=== PATIENT | male | born 1980 | race Caucasian/White ===

== ENCOUNTER 2021-05-20 12:37 | Inpatient (IN) | payer OTHER ==
[~2021-05-20] VITALS: Ht 172.7 cm; Wt 90.7 kg
[2021-05-20 14:16] LABS: HEMOGLOBIN 12.5 gm/dl (14.0-17.5); RED BLOOD COUNT 4.04 M/UL (4.20-5.50); WHITE BLOOD COUNT 14.3 K/UL (4.5-11.0)
[2021-05-20 15:06] LABS: BUN/CREATININE RATIO 30 (0-10)
[2021-05-20] MEDS ORDERED: ABILIFY 2 MG TAB2 MG PO (18:20)
[2021-05-20] MEDS ORDERED: FLONASE ALLER15.8 ML (18:21)
[2021-05-20] MEDS ORDERED: MOBIC15 MG PO (18:24)
[2021-05-20] MEDS ORDERED: LIDOCAINE HCL1 EACH TP (18:24)
[2021-05-20] MEDS ORDERED: CLARITIN10 MG PO (18:24)
[2021-05-20] MEDS ORDERED: ZOLOFT100 MG PO (18:25)
[2021-05-20] MEDS ORDERED: VESICARE10 MG PO (18:25)
[2021-05-20] MEDS ORDERED: BUSPAR 10MG10 MG PO (18:26)
[2021-05-20] MEDS ORDERED: VISTARIL 50 MG50 MG PO (18:26)
[2021-05-20] MEDS ORDERED: DOCUSATE SODIU100 MG PO (18:27)
[2021-05-20] MEDS ORDERED: LIPITOR10 MG PO (18:27)
[2021-05-20] MEDS ORDERED: CLONIDINE HCL0.2 MG PO (18:28)
[2021-05-20] MEDS ORDERED: XALATAN OP SOL2.5 ML EYEBOTH (18:28)
[2021-05-20] MEDS ORDERED: SINGULAIR10 MG PO (18:29)
[2021-05-20] MEDS ORDERED: MELATONIN5 M2 PO (18:29)
[2021-05-20] MEDS ORDERED: MINIPRES CAP 2 M2 MG PO (18:30)
[2021-05-20] MEDS ORDERED: DESYREL 50 MG T50 MG PO (18:30)
[2021-05-20] MEDS ORDERED: SEROQUEL400 MG PO (18:30)
[2021-05-20] MEDS ORDERED: ACETAMINOPHEN325 MG PO (18:31)
[2021-05-20] MEDS ORDERED: BIOFREEZE89 ML TOP (18:32)
[2021-05-20] MEDS ORDERED: CYCLOBENZAPRINE10 MG PO (18:33)
[2021-05-20] MEDS ORDERED: BACTROBAN OINT22 GM TOP (18:34)
[2021-05-20] MEDS ORDERED: ZOFRAN 4 MG TAB4 MG PO (18:35)
[2021-05-20] MEDS ORDERED: PROAIR HFA8.5 GM INH (18:36)
[2021-05-20] MEDS ORDERED: DEXAMETHASONE 44 MG PO (18:37)
[2021-05-20] MEDS ORDERED: BLINK GEL TEARS10 ML EYEBOTH (18:38)
[2021-05-20] MEDS ORDERED: LIDOCAINE-PRILOC5 GM TOP (18:39)
--- NOTE | 2021-05-20 19:07 | NUR ---
CALLED AND GAVE ORLIN REPORT PT GOING TO [id number]
--- NOTE | 2021-05-20 19:32 | NUR ---
PT has bed on 5th floor so focused assessment done. I applied tele and pulse ox to PT, PT alert and oriented x3. Lung sounds clear Bilat. Skin has various abrasions and scabs in various stages of healing. Coccyx has redness that is blanchable. PT was drenched in urine, clothes wet and sheets wed, also mattress drenched in urine. PT cleaned and condom cath applied, and brief applied, PT placed in gown. Bed alarm on PT instructed to use call light if needs to get up
--- NOTE | 2021-05-20 22:09 | NUR ---
R/T ASSESSMENT UPON ARRIVAL TO FLOOR AT 2019 ON 05/20/21. REST OF SKIN ASSESSMENT FOLLOWS. TOP RIGHT FOOT/BELOW GREAT TOE: BLISTER AREA WELL GENERAL SCATTERED SCABBING AND REDNESS NOTED, CLOSED, FORESTRY PILOT. TOP LEFT FOOT/BELOW GREAT TOE: BLISTER AREA WELL GENERAL SCATTERED SCABBING, REDNESS, DRY, CLOSED, FORESTRY PILOT. LEFT HIP: SCATTERED SCABBING AND DRYNESS, CLOSED. IZABELA. FOREHEAD: TWO SMALL AREAS WHERE THE SKIN HAS BEEN BROKEN, NO DRAINAGE NOTED, RED SURROUNDING AREA, IZABELA.
--- NOTE | 2021-05-21 03:33 | NUR ---
PT WAS GIVEN FOUR SANDWICHES, 1500 ML OF ICE WATER, 6 POPSICLES, TWO CONTAINERS OF PUDDING, AND 2 SUPPLEMENTAL DRINKS THROUGHOUT THE SHIFT TO THIS POINT IN TIME.
[2021-05-21 05:52] LABS: HEMOGLOBIN 12.4 gm/dl (14.0-17.5); RED BLOOD COUNT 4.05 M/UL (4.20-5.50); WHITE BLOOD COUNT 12.3 K/UL (4.5-11.0)
[2021-05-21 07:03] LABS: BUN/CREATININE RATIO 29 (0-10)
[2021-05-22 05:48] LABS: WHITE BLOOD COUNT 13.9 K/UL (4.5-11.0)
[2021-05-22 05:49] LABS: HEMOGLOBIN 14.7 gm/dl (14.0-17.5); RED BLOOD COUNT 4.72 M/UL (4.20-5.50)
[2021-05-22 06:30] LABS: BUN/CREATININE RATIO 25 (0-10)
[2021-05-22 09:10] LABS: HBSAG SCREEN Negative (Negative); HEP A AB, IGM Negative (Negative); HEP B CORE AB, IGM Negative (Negative); HEP C VIRUS AB <0.1 (0.0-0.9)
[2021-05-23 06:50] LABS: HEMOGLOBIN 14.5 gm/dl (14.0-17.5); RED BLOOD COUNT 4.79 M/UL (4.20-5.50); WHITE BLOOD COUNT 13.8 K/UL (4.5-11.0)
[2021-05-23 07:01] LABS: BUN/CREATININE RATIO 25 (0-10)
[2021-05-24 04:29] LABS: HEMOGLOBIN 13.1 gm/dl (14.0-17.5); WHITE BLOOD COUNT 11.3 K/UL (4.5-11.0)
[2021-05-24 04:30] LABS: RED BLOOD COUNT 4.25 M/UL (4.20-5.50)
[2021-05-24 04:47] LABS: BUN/CREATININE RATIO 30 (0-10)
--- NOTE | 2021-05-24 11:31 | NUR ---
CALLED [facility] AT LONG TERM AND DISCUSSED PLAN OF CARE. ALSO SPOKE WITH MEDICAL REPRESENTITIVE OF FACILITY AND DISCUSSED MEDICATION CHANGES WITH HER. THEY BOTH VERBALIZED UNDERSTANDING OF PLAN OF CARE.
== END 2021-05-24 12:58 | disposition home or self-care (01) | DRG 564 ==
LOC: ER1 12:37 → CDU 16:01 → M/S 16:01 → 3 EAST 18:34 → M/S 20:09
PROVIDERS: Physician Assistant; ADMIT Internal Medicine
PROC: 8E0ZXY6 Isolation (ICD-10-PCS; principal; 2021-05-20)
DX: T79.6XXA Traumatic ischemia of muscle, initial encounter (principal); U07.1 COVID-19; W18.39XA Other fall on same level, initial encounter; R74.01 Elevation of levels of liver transaminase levels; F31.9 Bipolar disorder, unspecified; F41.9 Anxiety disorder, unspecified; L89.892 Pressure ulcer of other site, stage 2; F17.290 Nicotine dependence, other tobacco product, uncomplicated; I10 Essential (primary) hypertension; B86 Scabies; E78.5 Hyperlipidemia, unspecified; F90.9 Attention-deficit hyperactivity disorder, unspecified type; R29.6 Repeated falls; G40.909 Epilepsy, unspecified, not intractable, without status epilepticus; L30.9 Dermatitis, unspecified; J45.909 Unspecified asthma, uncomplicated; Z98.890 Other specified postprocedural states; Z79.82 Long term (current) use of aspirin; Z88.8 Allergy status to other drugs, medicaments and biological substances; Z83.3 Family history of diabetes mellitus; Z55.8 Other problems related to education and literacy
CPT/HCPCS: 36415; 70450; 71045; 72125; 72128; 72131; 80048; 80053; 80074; 81001; 82550; 82553; 83735; 83874; 84484; 85025; 93005; 99285; G0378; J7030; Q0177; U0002